=== PATIENT | female | born 2005 | race Caucasian/White ===

== ENCOUNTER 2024-11-25 00:34 | Emergency (ER) | payer BC ==
[~2024-11-25] VITALS: Ht 172.7 cm; Wt 61.2 kg
[2024-11-25 00:42] VITALS: BP 124/75
[2024-11-25] MEDS ORDERED: BACITRACIN ZINC OINT 15 GM TUBE ONE (01:39)
[2024-11-25] MEDS ORDERED: KETOROLAC TROMETHAMINE 30 MG INJ ONE (01:40)
[2024-11-25] MEDS ORDERED: HYDROCODONE/APAP 5-325MG TABLET ONE (01:40)
[2024-11-25] MEDS ORDERED: TDAP DIPH,PERTUSS,TET VAC/PF 0.5 ML DISP.SYRIN IM ONE (01:40)
[2024-11-25] MEDS ORDERED: HYDR-4209 PO (01:45)
[2024-11-25] MEDS ORDERED: NAPR-1009 PO (01:45)
[2024-11-25] MEDS ORDERED: NEOM28.43 TP (01:45)
[2024-11-25] MEDS: BACITRACIN ZINC OINT 15 GM TUBE TOP STA (01:54)
[2024-11-25] MEDS: TDAP DIPH,PERTUSS,TET VAC/PF 0.5 ML DISP.SYRIN IM ONE (01:55)
[2024-11-25] MEDS: KETOROLAC TROMETHAMINE 30 MG INJ IM ONE (01:56)
[2024-11-25] MEDS: HYDROCODONE/APAP 5-325MG TABLET PO ONE (01:56)
[2024-11-25 02:09] VITALS: BP 124/75; O2SAT 97
== END 2024-11-25 02:10 | disposition home or self-care (01) ==
LOC: ER 00:46
DX: T24.212A Burn of second degree of left thigh, initial encounter (principal); F17.200 Nicotine dependence, unspecified, uncomplicated; Z91.030 Bee allergy status; X19.XXXA Contact with other heat and hot substances, initial encounter; Y93.89 Activity, other specified; Y92.89 Other specified places as the place of occurrence of the external cause; Y99.8 Other external cause status
CPT/HCPCS: 99284; 90715; 16020; 90471; 96372; J1885